=== PATIENT | male | born 1940 | race Hispanic/Latino ===

== ENCOUNTER 2017-04-15 12:19 | Inpatient (IN) | payer MEDICARE ==
[2017-04-15 12:26] VITALS: BMI 21.7
[2017-04-15] MEDS ORDERED: Sodium Chloride 0.9% 1,000 ML IV STA ×2 (12:39→20:06)
--- NOTE | 2017-04-15 13:03 | ED PDOC ---
Arrival/HPI - General Time Seen by Provider: 04/15/17 12:27 Historian: Patient, EMS EM Caveat: Altered Mental Status - History of Present Illness Narrative History of Present Illness (Text): 04/15/17 12:20 Yobani Rodriguez is a 77 year old male, whose past medical history includes throat cancer in remission, BPH status post TURP, unsteady gait, and vertigo, who was brought in by EMS because he was found down on the ground. EMS reports the patients caregiver arrived at his house, but the patient did not answer. Eventually the caregiver got inside and found the patient on the floor. The patient is unable to give a history on why he was on the floor. He notes having chills, but denies focal weakness, headache, nausea, vomiting, diarrhea, cough, visual changes, tongue biting, bowel/bladder incontinence, head injury or other complaints. Time/Duration: Prior to Arrival Symptom Onset: Sudden Symptom Course: Unchanged Modifying Factors (Text): None Context: Home Associated Symptoms (Text): fever and chills Past Medical History - Provider Review Nursing Documentation Reviewed: Yes - Infectious Disease Hx of Infectious Diseases: None - Tetanus Immunization Tetanus Immunization: Unknown - Cardiac Hx Cardiac Disorders: No Hx Congestive Heart Failure: No Hx Hypertension: Yes - Pulmonary Hx Chronic Obstructive Pulmonary Disease (COPD): No Hx Pneumonia: No - Neurological HX Cerebrovascular Accident: No - HEENT Hx HEENT Disorder: Yes (eyeglasses) - Renal Hx Renal Failure: No - Endocrine/Metabolic Hx Diabetes Mellitus Type 1: No Hx Diabetes Mellitus Type 2: No Hx Hypothyroidism: No - Hematological/Oncological Hx 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) - Integumentary Hx Dermatological Disorder: Yes Other/Comment: generalized thin dry this skin - Musculoskeletal/Rheumatological Hx Arthritis: No Hx Rheumatoid Arthritis: No - Gastrointestinal Hx Gastroesophageal Reflux: No - Genitourinary/Gynecological Hx Genitourinary Disorders: (cysto turp 3wf 07/30/16) Hx Reproductive Disorders: Yes - Psychiatric Hx Psychophysiologic Disorder: No Hx Depression: No Hx Emotional Abuse: No Hx Physical Abuse: No Hx Substance Use: No - Surgical History Hx Appendectomy: Yes Other/Comment: hernia - Anesthesia Hx Anesthesia Reactions: No Hx Malignant Hyperthermia: No - Suicidal Assessment Feels Threatened In Home Enviroment: No Family/Social History - Physician Review Nursing Documentation Reviewed: Yes Family/Social History: Unknown Family HX Smoking Status: Never Smoked Hx Alcohol Use: No Hx Substance Use: No Hx Substance Use Treatment: No Allergies/Home Meds Allergies/Adverse Reactions: Allergies Penicillins Allergy (Verified 04/15/17 13:12) RASH Home Medications: Home Meds Medication Instructions Recorded Confirmed Atorvastatin Calcium [Lipitor] 40 mg PO DAILY 11/14/14 07/30/16 Finasteride 5 mg PO DAILY 11/14/14 07/30/16 Tamsulosin [Flomax] 0.4 mg PO DAILY 11/14/14 07/30/16 Lubiprostone [Amitiza] 1 mcg PO DAILY 12/05/15 07/30/16 Meclizine [Meclizine*] 25 mg PO Q6 PRN 03/06/16 07/30/16 Metoprolol Succinate [Toprol XL] 25 mg PO DAILY 03/06/16 07/30/16 Review of Systems - Review of Systems Systems not reviewed;Unavailable: Altered Mental Status Constitutional: Fevers, Other (chills) Eyes: Normal. absent: Vision Changes ENT: Normal Respiratory: absent: SOB, Cough Cardiovascular: Syncope. absent: Chest Pain Gastrointestinal: absent: Abdominal Pain, Nausea, Vomiting Genitourinary Male: Normal Musculoskeletal: absent: Neck Pain Skin: Normal Neurological: absent: Headache, Focal Weakness Endocrine: Normal Hemo/Lymphatic: Normal Psychiatric: Normal Physical Exam Vital Signs Reviewed: Yes Vital Signs Temp Pulse Resp BP Pulse Ox 04/15/17 13:00 100.1 F H 123 H 20 108/44 L 97 Temperature: Febrile Blood Pressure: Hypotensive Pulse: Tachycardic Respiratory Rate: Normal Appearance: Positive for: Ill-Appearing Pain Distress: None Mental Status: Positive for: Alert and Oriented X 3 - Systems Exam Head: Present: Atraumatic, Normocephalic Pupils: Present: PERRL Conjunctiva: Present: Normal Mouth: Present: Dry Pharnyx: Present: Normal. No: ERYTHEMA, EXUDATE Neck: Present: Normal Range of Motion Respiratory/Chest: Present: Decreased Breath Sounds Cardiovascular: Present: Irregular Rhythm, Tachycardic. No: Murmurs Abdomen: Present: Normal Bowel Sounds. No: Tenderness, Distention, Peritoneal Signs Upper Extremity: Present: Other (multiple fingers with swan neck deformities ) Lower Extremity: Present: Normal Inspection. No: Edema Neurological: Present: GCS=15, CN II-XII Intact, Speech Normal Skin: Present: Warm, Dry, Normal Color. No: Rashes Psychiatric: Present: Oriented x 3 Medical Decision Making ED Course and Treatment: 04/15/17 12:20 Impression: 77 year old male with syncopal episode. Differential Diagnosis included but are not limited to: syncope vs. sepsis vs. rhabdo vs. dehydration vs. ACS vs. intercranial hemorrhage Plan: -- EKG -- CT Head without contrast -- Chest X-ray -- Labs -- Urinalysis -- Sodium Chloride -- Reassess and disposition Progress Notes: EKG: Ordered, reviewed, and independently interpreted the EKG. Rate : 147 BPM Rhythm : Afib. Left [place] Deviation. Interpretation : Non-specific T-wave changes. Comparison : No new changes compared to 07/25/2016 04/15/17 14:[address] scan without contrast: Creator : Omi Orourke MD COMPARISON: 08/01/[address] FINDINGS: HEMORRHAGE: No intracranial hemorrhage. BRAIN: No mass effect or cortical edema. Age-related neuro-degenerative changes including diffuse cerebral atrophy chronic microangiopathy are reiterated ileal in the interval. No suspicious parenchymal findings are identified throughout. VENTRICLES: Unremarkable. No hydrocephalus. CALVARIUM: Unremarkable. PARANASAL SINUSES: Unremarkable as visualized. No significant inflammatory changes. MASTOID AIR CELLS: Unremarkable as visualized. No inflammatory changes. OTHER FINDINGS: None. 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 Follow-up MRI or CT are available clinically warranted. 04/15/17 14:38 Chest X-ray : Creator : Qasim Cifuentes MD HISTORY: Sepsis Patient COMPARISON: 07/26/2016 FINDINGS: LUNGS: Decreased volume in the left lung relative to the right. This is unchanged. No evidence of pneumonia PLEURA: No significant pleural effusion identified, no pneumothorax apparent. CARDIOVASCULAR: Normal. OSSEOUS STRUCTURES: No significant abnormalities. VISUALIZED UPPER ABDOMEN: Normal. OTHER FINDINGS: None. IMPRESSION: No evidence of pneumonia 04/15/17 15:31 Patient with noted history. He is awake and alert here but unsure of what happened. CT brain and CXR with no acute findings. EKG with afib; He is hemodynamically stable. Labs show dehydration and mild rhabdo. 04/15/17 18:10 Antibiotic added for possible UTI. - Lab Interpretations Lab Results: 04/15/17 13:00 04/15/17 13:00 Lab Results 04/15/17 15:00: Urine Color Yellow, Urine Appearance Sl cloudy, Urine pH 5.5, Ur Specific [place] >= 1.030, Urine Protein 30 H, Urine Glucose (UA) Negative, Urine Ketones 40 H, Urine Blood Moderate H, Urine Nitrate Negative, Urine Bilirubin Small H, Urine Urobilinogen 1.0 H, Ur Leukocyte Esterase Negative, Urine RBC 10 - 15, Urine WBC 0 - 2 04/15/17 13:00: C-React Prot High Sens > 15.00 H 04/15/17 13:00: Procalcitonin < 0.05 L 04/15/17 13:00: Sodium 141, Chloride 105, Potassium 3.9, Carbon Dioxide 22, Anion Gap 18, BUN 25 H, Creatinine 1.0, Est GFR ( Amer) > 60, Est GFR ( Non-Af Amer) > 60, Random Glucose 104, Calcium 9.5, Phosphorus 4.0, Magnesium 1.8, Total Bilirubin 1.8 H, AST 38, ALT 23, Alkaline Phosphatase 28 L, Lactate Dehydrogenase 485, Total Creatine Kinase 717 H, CK-MB (CK-2) 8.9 H, CK-MB (CK-2 ) % 1.2 L, Troponin I < 0.01, Total Protein 6.7, Albumin 3.7, Globulin 3.0, Albumin/Globulin Ratio 1.2, Lipase 34 04/15/17 13:00: pO2 42, VBG pH 7.37, VBG pCO2 39.0 L, VBG HCO3 22.5, VBG Total CO2 23.7, VBG O2 Sat (Calc) 81.6 H, VBG Base Excess -2.5 L, VBG Potassium 4.1, Sodium 139.0, Chloride 105.0, Glucose 110, Lactate 1.8, FiO2 21.0, Venous Blood Potassium 4.1 04/15/17 13:00: PT 12.6 H, INR 1.17 H, APTT 28.3 04/15/17 13:00: WBC 8.2, RBC 4.84, Hgb 14.3, Hct 43.0, MCV 88.8, MCH 29.5, MCHC 33.3, RDW 13.6, Plt Count 235, MPV 9.6, Gran % 84.9 H, Lymph % (Auto) 4.2 L, [place] % (Auto) 10.6 H, Eos % (Auto) 0.1 L, Baso % (Auto) 0.2, Gran # 6.93 H, Lymph # 0.3 L, [place] # 0.9 H, Eos # 0.0, Baso # 0.02, ESR 10 I have reviewed the lab results: Yes - RAD Interpretation Radiology Orders: 04/15/17 12:35 CHEST PORTABLE [RAD] Stat 04/15/17 12:38 Brain [HEAD W/O CONTRAST] [CT] Stat Manager Wireless: Radiologist - EKG Interpretation Interpreted by ED Physician: Yes Type: 12 lead EKG - Medication Orders Current Medication Orders: Discontinued Medications Acetaminophen (Tylenol 325mg Tab) 650 mg PO STAT STA Stop: 04/15/17 13:54 Last Admin: 04/15/17 14:52 Dose: 650 mg Re-Assess: MAR Pain/Vitals Document 04/15/17 15:52 [facility] (Rec: 04/15/17 16:13 [facility] [id number]) Pain Reassessment Is This A Pain ReAssessment? Yes Sleep Is patient sleeping during reassessment? No Presence of Pain Presence of Pain No Sodium Chloride (Sodium Chloride 0.9%) 1,000 mls @ 999 mls/hr IV .Q1H1M STA Stop: 04/15/17 13:39 Last Admin: 04/15/17 13:23 Dose: 999 mls/hr - PA / CLASSIFICATION CLERK / Resident Statement / has reviewed & agrees with the documentation as recorded. / has examined the patient and agrees with the treatment plan. - Scribe Statement The provider has reviewed the documentation as recorded by the Scribe 04/15/2017 Vannessa Gilman Provider Scribe Attestation: All medical record entries made by the Scribe were at my direction and personally dictated by me. I have reviewed the chart and agree that the record accurately reflects my personal performance of the history, physical exam, medical decision making, and the department course for this patient. I have also personally directed, reviewed, and agree with the discharge instructions and disposition. Disposition/Present on Arrival - Present on Arrival Any Indicators Present on Arrival: Yes History of DVT/PE: No History of Uncontrolled Diabetes: No Urinary Catheter: Yes (3 way hurtado with irrigant) History Surgical Site Infection Following: None - Disposition Have Diagnosis and Disposition been Completed?: Yes Diagnosis: Atrial fibrillation, Altered mental status, Dehydration Disposition: HOSPITALIZED Disposition Time: 14:40 Patient Plan: Admission, Telemetry Patient Problems: Current Active Problems Problem Status Onset Altered mental status Acute Atrial fibrillation Acute Condition: FAIR Referrals: Ronak Garza DO [Primary Care Provider] - Follow up with primary
[2017-04-15 13:35] LABS: VENOUS BLOOD GAS BASE EXCESS -2.5 mmol/L (0.0-2.0); VENOUS BLOOD GAS PO2 42 mm/Hg (30-55); VENOUS BLOOD PH 7.37 (7.32-7.43)
[2017-04-15 13:36] LABS: BASO # 0.02 K/mm3 (0.0-2.0); BASO % 0.2 % (0.0-3.0); EOS % 0.1 % (1.5-5.0); GRAN # 6.93 (1.4-6.5); GRAN % 84.9 % (50.0-68.0); HEMOGLOBIN 14.3 gm/dL (14.0-18.0); LYMPH # 0.3 (1.2-3.4); LYMPH % 4.2 % (22.0-35.0); MEAN CELL VOLUME 88.8 fL (80.0-105.0); MEAN CORPUSCULAR HEMOGLOBIN 29.5 pg (25.0-35.0); MEAN CORPUSCULAR HGB CONC 33.3 g/dl (31.0-37.0); MEAN PLATELET VOLUME 9.6 fl (7.0-11.0); MONO # 0.9 (0.1-0.6); MONO % 10.6 % (1.0-6.0); PLATELET COUNT 235 10^3/uL (120.0-450.0); RBC 4.84 10^6/uL (3.5-6.1); RED CELL DISTRIBUTION WIDTH 13.6 % (11.5-14.5); WHITE BLOOD COUNT 8.2 10^3/ul (4.5-11.0)
[2017-04-15 13:47] LABS: INR 1.17 (0.93-1.08); PARTIAL THROMBOPLASTIN TIME 28.3 Seconds (23.7-30.8); PROTHROMBIN TIME 12.6 Seconds (9.9-11.8)
[2017-04-15 13:50] LABS: ALB/GLOB RATIO 1.2 (1.1-1.8); ALBUMIN 3.7 g/dL (3.0-4.8); ALT/SGPT 23 U/L (7-56); AST/SGOT 38 U/L (15-59); BLOOD UREA NITROGEN 25 mg/dL (7-21); CALCIUM 9.5 mg/dL (8.4-10.5); GFR AFRICAN-AMERICAN > 60; GFR NON-AFRICAN AMERICAN > 60; LIPASE 34 U/L (23-300); MAGNESIUM 1.8 mg/dL (1.7-2.2)
[2017-04-15 14:03] LABS: TROPONIN I < 0.01 ng/mL
[2017-04-15 14:06] LABS: CK MB% 1.2 % (2.5-3.0); CK-MB 8.9 ng/mL (0.0-3.6)
--- NOTE | 2017-04-15 14:10 | CT ---
PROCEDURE: CT HEAD WITHOUT CONTRAST. HISTORY: found on ground, alt ms COMPARISON: 08/01/[address] TECHNIQUE: Axial computed tomography images were obtained through the head/brain without intravenous contrast. Radiation dose: Total exam DLP = 774 mGy-cm. This CT exam was performed using one or more of the following dose reduction techniques: Automated exposure control, adjustment of the mA and/or kV according to patient size, and/or use of iterative reconstruction technique. FINDINGS: HEMORRHAGE: No intracranial hemorrhage. BRAIN: No mass effect or cortical edema. Age-related neuro-degenerative changes including diffuse cerebral atrophy chronic microangiopathy are reiterated ileal in the interval. No suspicious parenchymal findings are identified throughout. VENTRICLES: Unremarkable. No hydrocephalus. CALVARIUM: Unremarkable. PARANASAL SINUSES: Unremarkable as visualized. No significant inflammatory changes. MASTOID AIR CELLS: Unremarkable as visualized. No inflammatory changes. OTHER FINDINGS: None. 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 Follow-up MRI or CT are available clinically warranted.
--- NOTE | 2017-04-15 14:34 | RAD ---
HISTORY: Sepsis Patient COMPARISON: 07/26/2016 FINDINGS: LUNGS: Decreased volume in the left lung relative to the right. This is unchanged. No evidence of pneumonia PLEURA: No significant pleural effusion identified, no pneumothorax apparent. CARDIOVASCULAR: Normal. OSSEOUS STRUCTURES: No significant abnormalities. VISUALIZED UPPER ABDOMEN: Normal. OTHER FINDINGS: None. IMPRESSION: No evidence of pneumonia
[2017-04-15 15:34] LABS: PH,URINE 5.5 (4.7-8.0); URINE BILIRUBIN SMALL (NEGATIVE); URINE BLOOD MODERATE (NEGATIVE); URINE GLUCOSE (UA) NEGATIVE (NEGATIVE); URINE LEUKOCYTE ESTERASE NEGATIVE Leu/uL (NEGATIVE); URINE NITRATE NEGATIVE (NEGATIVE); URINE PROTEIN 30 mg/dL (<30 mg/dL)
[2017-04-15 15:36] LABS: URINE APPEARANCE SL CLOUDY (CLEAR); URINE COLOR YELLOW (YELLOW)
[2017-04-15 15:47] LABS: URINE WBC 0 - 2 /hpf (0-6)
[2017-04-15] MEDS ORDERED: cefTRIAXone 1 gm 1 GM/100 ML BAG IV STA (18:09)
--- NOTE | 2017-04-15 19:02 | CARD ---
APPROVED REPORT EKG Measurement Heart [id number] <Conclusion> A Fib with RVR Left anterior fascicular block Nonspecific ST and T wave abnormality Abnormal ECG
[2017-04-15 22:57] LABS: CK MB% 1.2 % (2.5-3.0); CK-MB 6.6 ng/mL (0.0-3.6); TROPONIN I < 0.01 ng/mL
[2017-04-15] MEDS ORDERED: Pneumococcal 23-Valent Vaccine IM ONE (23:32)
[2017-04-16] MEDS: Meropenem 1g/NS 100mL IVPB 1 GM/100 ML PIGGYBACK IVPB SCH ×3 (06:12→21:05)
[2017-04-16 07:11] LABS: MEAN CELL VOLUME 89.9 fL (80.0-105.0); MEAN CORPUSCULAR HEMOGLOBIN 29.1 pg (25.0-35.0); MEAN CORPUSCULAR HGB CONC 32.3 g/dl (31.0-37.0); MEAN PLATELET VOLUME 9.7 fl (7.0-11.0); RBC 4.47 10^6/uL (3.5-6.1); RED CELL DISTRIBUTION WIDTH 13.9 % (11.5-14.5); WHITE BLOOD COUNT 4.5 10^3/ul (4.5-11.0)
[2017-04-16 07:26] LABS: ALB/GLOB RATIO 1.2 (1.1-1.8); ALBUMIN 3.1 g/dL (3.0-4.8); ALT/SGPT 25 U/L (7-56); AST/SGOT 31 U/L (15-59); BLOOD UREA NITROGEN 20 mg/dL (7-21); CALCIUM 8.6 mg/dL (8.4-10.5); GFR AFRICAN-AMERICAN > 60; GFR NON-AFRICAN AMERICAN > 60
[2017-04-16] MEDS: Sodium Chloride 0.45% 1,000 ML IV SCH (08:36)
--- NOTE | 2017-04-16 09:43 | HP ---
HISTORY OF PRESENT ILLNESS: I know Yobani very well from house calls and recent admissions. I got a call from the emergency room that he was in the ER. He was found on the floor. I discussed this with family, with his niece who said he was not around for 2 days; they have to break the door down to get to him. It could be possible that he has been on the floor for 48 hours. He comes in being a 77-year-old man who was found on the ground by EMS. He was unable to answer questions. He was unable to give any history, do not know why he was on the floor, he was a kind of adamant. PAST MEDICAL HISTORY: He has a past medical history of throat cancer in remission, BPH, status post TURP, unsteady gait, vertigo, hypertension, squamous cell of the neck, status post radiation, generalized dry skin. He had a cysto TURP. He had a hernia and appendectomy. FAMILY HISTORY: Hypertension with family. SOCIAL HISTORY: Never smoked. No alcohol. No drugs. ALLERGIES: HE HAS ALLERGIES TO PENICILLIN, HE GETS A RASH. MEDICATIONS: He is on Lipitor for high cholesterol, finasteride and Flomax for BPH, Amitiza for constipation, meclizine for dizziness and metoprolol for hypertension. REVIEW OF SYSTEMS: He is altered mentally. He answered a few questions for me, he has some fevers. No acute vision changes or hearing changes. Denies shortness of breath. No chest pain at this time but possibly a syncope episode. No nausea, vomiting, constipation, diarrhea. He is achy in his extremities. Skin for the most part is intact. No dizziness. No numbness. No tingling. PHYSICAL EXAMINATION: Vital signs: He has a 100.1 temp, 123 pulse, 20 respiratory rate, 108/44 blood pressure, 97% of O2 sat. General: He is in little bit of distress. He has altered mental status. He has fevers. HEENT: His head is atraumatic and normocephalic. Extraocular muscles are intact. Throat is dry. Neck: Supple. Lungs: Decreased breath sounds, but clear to auscultation. Heart: Irregular rhythm. Abdomen: Soft, nontender, positive bowel sounds. No guarding. No rebound. Extremities: No edema. He is thin and frail. Neurologic: GCS is 15. Cranial nerves II through XII grossly intact. Dry skin. He is alert. He was found on the ground. LABORATORY DATA: His urine shows 30 protein, 40 ketones, moderate blood, negative leukocytes. He has 141 sodium, potassium 3.9, BUN 25, creatinine 1. GFR is greater than 60. Sugar is 104, calcium is 9.5, phosphorus is 4, magnesium 1.8, total bilirubin is 1.8. AST is 38 and ALT is 23. Alkaline phosphatase is 28, lactate dehydrogenase is 45. Total creatine kinase is 5717. Troponin I is less than 0.01. His CRP is greater than 15. Total protein 6.7, albumin is 3.7, globulin is 3, procalcitonin is less than 0.05. He has 7.37 pH. INR is 1.17. White count is 8.2, hemoglobin 14.3, hematocrit 43, platelets of 235. He had a chest x-ray that showed no evidence of pneumonia. He had a head CT which showed stable mild age-related neurodegenerative change without intracranial findings. His EKG showed AFib with rapid ventricular response. He has numerous issues. He has had a bit of rhabdomyolysis, mild renal insufficiency, dehydration, change in mental status and atrial fibrillation, however, consult with cardiology and infectious disease. The temperature is possibly because of an infection. We put back on his medications. He was already given a dose of Rocephin, even though he is allergic to penicillin. We will continue with aggressive treatment and care. Check his labs tomorrow. Ronak Garza DO
--- NOTE | 2017-04-16 10:18 | US ---
HISTORY: fever/size of CBD COMPARISON: None. TECHNIQUE: Sonographic evaluation of the abdomen. FINDINGS: LIVER: Measures 11 x 9 x 9 cm. Normal echogenicity of the liver parenchyma. No mass. No intrahepatic bile duct dilatation. GALLBLADDER: Unremarkable. No gallstones. Bilateral renal cysts COMMON BILE DUCT: Measures 3 mm. No stones. No dilatation. PANCREAS: Unremarkable as visualized. No mass. No ductal dilatation. RIGHT KIDNEY: Measures 10 x 6 x 5cm. Normal echogenicity. No calculus, solid mass, or hydronephrosis. Exophytic cyst lower pole: 2.7 2.9 x 2.9 cm LEFT KIDNEY: Measures 11 x 5 x 6cm. Normal echogenicity. No calculus, solid mass, or hydronephrosis. Multiple at least 3 small cysts all less than 2 cm in size parapelvic and intra cortical SPLEEN: Normal in size and contour. No mass. AORTA: No aneurysmal dilatation. IVC: Unremarkable. OTHER FINDINGS: None. IMPRESSION: No gallbladder pathology appreciated. No dilated ducts Bilateral renal cysts
[2017-04-16] MEDS: Potassium Chloride 20 mEq ER Tab PO SCH (11:32)
[2017-04-16] MEDS: Metoprolol Succinate 25 mg XL Tab PO SCH (11:32)
--- NOTE | 2017-04-16 15:12 | PN ---
DATE: 04/16/2017 SUBJECTIVE: I saw Yobani this morning, resting in bed. He is more alert. He knew where he was. He does not remember much of the other days, but he tells me he is very hungry this morning. He is almost back to himself mentally. I think he is little bit weak. He might need some physical therapy, they were ordered. He is also asking for food, I will give him regular diet this morning. He is much better than yesterday. He was much out of it yesterday. PHYSICAL EXAMINATION VITAL SIGNS: 97.4 temp, 98 pulse, 117/75 blood pressure, 20 respiratory rate, and 92% O2 saturation on room air. HEENT: Head is atraumatic and normocephalic. Throat is full dry. NECK: Supple. HEART: Regular rate. LUNGS: Decreased breath sounds, but clear. ABDOMEN: Soft, nontender, and positive bowel sounds. EXTREMITIES: No clubbing or edema. MEDICATIONS: He is currently on Antivert, aspirin, Flomax, potassium replacement. His potassium is low. Lipitor, Merrem IV to make sure we are not missing an infection, Proscar, IV fluids at 60, and Toprol. LABORATORY DATA: He has 143 sodium; potassium 3.3, I gave him some potassium; BUN 20; creatinine 0.7 much better than when he came in. GFR is greater than 60. Sugar is 70, calcium is 8.6, total bilirubin is better 1.4. AST is 31 and ALT is 25 and alkaline phosphatase is 22 all improving. 441. His total creatine kinase dropped to 549 improving. His troponin again is less than 0.01, which is great. Total protein is 5.8. White count and hemoglobin are pending this morning, but they were very good yesterday. He has consult with Infectious Disease, to make sure we are not missing an infection, and Cardiology. Overall, I do think he is improving. We will check his labs. Blood cultures pending. He is going to have physical therapy, might need CCU versus subacute rehab and I will see what the recommendation on physical therapy is. He was here for being found on the floor, little bit unresponsive, rhabdo, dehydration, and change in mentation. He is definitely coming around and a low potassium, we will replace it. Check his labs tomorrow. Get him out of bed to chair, physical therapy. Ronak Garza DO [email or web address]
--- NOTE | 2017-04-16 16:45 | US ---
HISTORY: Leg pain and swelling. Evaluate for DVT PHYSICIAN(S): Rowdy Alaniz MD. TECHNIQUE: Duplex sonography and color-flow Doppler with graded compression were used to evaluate the deep venous systems of both lower extremities. FINDINGS: The visualized deep venous systems of both lower extremities are sonographically normal and compressible. Normal wave forms and augmentation are seen. There is no sonographic evidence for deep venous thrombosis in the visualized segments of both lower extremities. IMPRESSION: No sonographic evidence for deep venous thrombosis in the visualized segments of both lower extremities.
--- NOTE | 2017-04-16 19:51 | CON ---
DATE: 04/16/2017 INDICATIONS: Possible syncope, chronic atrial fibrillation. HISTORY OF PRESENT ILLNESS: This is a 77-year-old man who is known to me, who was brought to the hospital yesterday after being found on the floor for perhaps a couple of days. He is unable to give an account and he is confused. Information is from the hospital record. Apparently, a caregiver found him on the floor at home. The patient reported chills, but no chest pain or shortness of breath. Today, he is not sure what happened. There is no orthopnea, PND, palpitations, sputum production, hemoptysis, abdominal pain, nausea, vomiting, diarrhea, constipation, melena. PAST MEDICAL HISTORY: Notable for atrial fibrillation. He is not on anticoagulation because it was judged to be too risky. He has a history of hyperlipidemia, prior syncope, tremor, vertigo, ENT cancer, treated with radiation therapy, inguinal hernia repair, appendectomy, urinary tract infections, BPH. He is a former smoker. There is no history of rheumatic fever, myocardial infarction, congestive heart failure, stroke or TIA. No history of gout. MEDICATIONS AT THE TIME OF ADMISSION: Include Amitiza, aspirin, finasteride, Flomax, Lipitor, meclozine, metoprolol. ALLERGIES: THERE IS AN ALLERGY TO PENICILLIN NOTED. FAMILY HISTORY: Positive for heart disease. SOCIAL HISTORY: He lives at home. He has assistance with a health aide. He is a former smoker. He does not drink alcohol significantly. REVIEW OF SYSTEMS: A 10-point review of system is unavailable because of confusion. PHYSICAL EXAMINATION GENERAL: He is a well developed, elderly man, lying flat in bed on telemetry, in no acute distress. VITAL SIGNS: Notable for atrial fibrillation at 69-108 beats per minute. He is afebrile. Blood pressure 117/75, respirations 16-20, O2 saturations 93% to 97% on room air. HEENT: Reveals no neck vein distension, thyromegaly, or carotid bruits. Mucous membranes moist. Conjunctive pink. NECK: Supple. LUNGS: [place] are clear. HEART: Reveals an irregular rhythm. Normal first and second heart sounds. Soft systolic murmur along left sternal border. ABDOMEN: Soft, bowel sounds are present. No mass, organomegaly, tenderness, rebound, or guarding. No CVA tenderness elicited. No palpable abdominal aortic aneurysm. EXTREMITIES: Reveals no cyanosis, clubbing or edema. NEUROLOGIC: Awake, alert, confused. PSYCHIATRIC: Normal as to mood and affect. SKIN: Warm and dry. No rash or cellulitis. LABORATORY DATA: EKG demonstrated atrial fibrillation with rapid ventricular response, nonspecific ST wave changes. No change from a prior EKG except that the rate is a bit faster. A chest x-ray reveals no evidence of pneumonia. A CT scan of the head reveals stable, mild age-related neurodegenerative changes. No acute findings. CBC is unremarkable. PT, INR, PTT unremarkable. Blood gas is noted. Electrolytes, BUN, and creatinine, blood sugar, phosphorus, magnesium, LFTs unremarkable except for mildly elevated bilirubin and low alkaline phosphatase. Troponin is negative x2. CK is elevated at 717, repeat 549. C-reactive protein is elevated at 15. Lipase is normal. Procalcitonin is low at 0.05. Urinalysis is abnormal. ASSESSMENT: Yobani Rodriguez is a 77-year-old man who was found on the floor and is confused. There may be an element of rhabdomyolysis given the mildly elevated CK. There is no evidence of acute myocardial infarction. He is in chronic atrial fibrillation. He has not been anticoagulated because the risk is too high. PLAN: At this time, I will review his old records. He is on telemetry. He is getting IV fluids. Potassium is being replaced for a potassium of 3.3 this morning. He will get metoprolol. He has been cultured. He is on antibiotics. His home medications have been ordered including aspirin, Flomax, atorvastatin, and finasteride. He could be out of bed to chair. He will have a neurologic evaluation. He will have an ID evaluation. We will monitor I's and O's. I will check for postural changes. I will follow along with you. I will make additional recommendations based on his clinical course. Overall, a conservative course of cardiac care is anticipated. He still appears to be a high risk for chronic anticoagulation. Dar Velazquez MD [facility]
[2017-04-17] MEDS: Sodium Chloride 0.45% 1,000 ML IV SCH ×3 (00:57→20:17)
--- NOTE | 2017-04-17 03:18 | CON ---
The patient was seen in room 267, bed 2 this morning. CHIEF COMPLAINT: Low-grade fever and weakness. The patient was found on the floor x1 day. HISTORY OF PRESENT ILLNESS: This is a 77-year-old male with history of throat cancer, squamous cell; BPH; and chronic obstructive lung disease. The patient has had radiation therapy. He is an ex-smoker who was admitted, and the patient was found to have low-grade fevers. The patient had complained of being weak. He is able to give a history, although it is difficult as he is weak. He appears to be awake and oriented to time and place and person. No abdominal pain reported. No diarrhea or constipation. PAST MEDICAL HISTORY: Significant for thyroid cancer, squamous cell, with radiation therapy; BPH; and chronic obstructive lung disease. PAST SURGICAL HISTORY: Significant for TURP. ALLERGIES: THE PATIENT IS ALLERGIC TO PENICILLIN. MEDICATIONS AT HOME: Include, the patient is to be on Flomax, metoprolol, Amitiza, Lipitor, and aspirin. PHYSICAL EXAMINATION: VITAL SIGNS: The patient's temperature is 97, T-max is 100.1; blood pressure is 115/60; respiratory rate 20; heart rate of 98. HEENT: Unremarkable. NECK: Supple. LUNGS: Decreased breath sounds. HEART: Normal S1 and S2. ABDOMEN: Soft and nontender. LABORATORY DATA: Reveals a white count of 4.5, hemoglobin of 13, and platelets of 199. Coagulation is noted. BUN of 20 and creatinine of 0.7. CPK is improved. Procalcitonin is 0.05 (C-reactive protein is greater than 15). Blood cultures are no growth. The patient also had no evidence of DVT on the ultrasound and the ultrasound shows no gallbladder pathology appreciated. ASSESSMENT AND PLAN: A [id number] with throat cancer, squamous cell, with radiation; ex-smoker; benign prostatic hypertrophy; and chronic obstructive lung disease, with change in mental status, with low-grade fever of 100.1. CAT scan of the head is negative. Chest x-ray is negative. Currently on meropenem. If the patient's temperature remains afebrile and all cultures are negative, we will discontinue the meropenem in the next 24 hours. Derrell Beach MD
[2017-04-17] MEDS: Meropenem 1g/NS 100mL IVPB 1 GM/100 ML PIGGYBACK IVPB SCH (05:29)
[2017-04-17 06:19] LABS: ALB/GLOB RATIO 1.1 (1.1-1.8); ALBUMIN 2.9 g/dL (3.0-4.8); ALT/SGPT 20 U/L (7-56); AST/SGOT 26 U/L (15-59); BLOOD UREA NITROGEN 21 mg/dL (7-21); CALCIUM 8.5 mg/dL (8.4-10.5); GFR AFRICAN-AMERICAN > 60; GFR NON-AFRICAN AMERICAN > 60
[2017-04-17 06:43] LABS: HEMOGLOBIN 13.5 gm/dL (14.0-18.0); MEAN CELL VOLUME 89.8 fL (80.0-105.0); MEAN CORPUSCULAR HEMOGLOBIN 29.8 pg (25.0-35.0); MEAN CORPUSCULAR HGB CONC 33.2 g/dl (31.0-37.0); MEAN PLATELET VOLUME 9.8 fl (7.0-11.0); RBC 4.53 10^6/uL (3.5-6.1); WHITE BLOOD COUNT 4.8 10^3/ul (4.5-11.0)
--- NOTE | 2017-04-17 07:35 | CP.PCM.PN ---
Subjective - Date & Time of Evaluation Date of Evaluation: 04/17/17 Time of Evaluation: 07:00 - Subjective Subjective: Stable on 2R. Less confused. No CP or SOB. V/S noted. AF. PE: Lungs: few rhonchi Cor.: irreg., S1S2 Abd.: soft Ext.: no edema Neuro.: awake I/O= 1400/250 Labs noted. K+= 3.8 BC x2 NG at 24 hrs. LE stefano. Dopplers noted: No DVT Abd. U/S noted. Objective - Vital Signs/Intake and Output Vital Signs (last 24 hours): Temp Pulse Resp BP Pulse Ox 97.8 F 99 H 19 107/73 96 04/17/17 06:00 04/17/17 06:00 04/17/17 06:00 04/17/17 06:00 04/17/17 06:00 Intake and Output: 04/17/17 04/17/17 06:59 18:59 Intake Total 1160 Output Total 250 Balance 910 - Medications Medications: Current Medications Aspirin (Aspirin) 325 mg PO DAILY [facility] Last Admin: 04/16/17 11:32 Dose: 325 mg Atorvastatin Calcium (Lipitor) 40 mg PO DAILY [facility] Last Admin: 04/16/17 11:32 Dose: 40 mg Finasteride (Proscar) 5 mg PO DAILY [facility] Last Admin: 04/16/17 11:32 Dose: 5 mg Meropenem 1g/NS 100mL IVPB (Meropenem 1g/Ns 100ml Ivpb) 1 gm in 100 mls @ 100 mls/hr IVPB Q8 [facility] PRN Reason: Protocol Stop: 04/25/17 06:01 Last Admin: 04/17/17 05:29 Dose: 100 mls/hr Sodium Chloride (Sodium Chloride 0.45%) 1,000 mls @ 60 mls/hr IV .[id number] [facility] Last Admin: 04/17/17 03:00 Dose: 60 mls/hr Meclizine HCl (Antivert) 25 mg PO Q6 PRN PRN Reason: Dizziness Metoprolol Succinate (Toprol Xl) 25 mg PO DAILY [facility] Last Admin: 04/16/17 11:32 Dose: 25 mg Potassium Chloride (K-Dur 20 Meq Er Tab) 20 meq PO BRK [facility] Last Admin: 04/16/17 11:32 Dose: 20 meq Tamsulosin HCl (Flomax) 0.4 mg PO DAILY [facility] Last Admin: 04/16/17 11:32 Dose: 0.4 mg - Labs Labs: 04/17/17 05:50 04/17/17 05:50 PT 12.6 Seconds (9.9-11.8) H 04/15/17 13:00 INR 1.17 (0.93-1.08) H 04/15/17 13:00 APTT 28.3 Seconds (23.7-30.8) 04/15/17 13:00 Assessment and Plan - Assessment and Plan (Free Text) Assessment: Found on the floor at home with AMS Chronic AF, not on A/C, too risky HLD H/O ENT ca., s/p XRT BPH UTI's Vertigo S/P appendectomy, inguinal hernia repair Former Smoker Plan: IV > PO intake OOB to chair as majo Check cultures. As per ID As per Dr. Garza Conservative cardiac care.
[2017-04-17] MEDS: Potassium Chloride 20 mEq ER Tab PO SCH (08:06)
[2017-04-17] MEDS: Metoprolol Succinate 25 mg XL Tab PO SCH (10:47)
--- NOTE | 2017-04-17 11:39 | PN ---
DATE: SUBJECTIVE: He is resting comfortably in bed. He slept well last night. He is very alert and oriented. He understands what is going on. He is hungry. He is eating well. He is in good spirits. He is just weak in his physical therapy . PHYSICAL EXAMINATION VITAL SIGNS: 97.6 temperature, 99 pulse, 107/70 blood pressure, 19 respiratory rate, and 96% sat on nasal cannula. HEENT: Head is atraumatic and normocephalic. Throat is moist. NECK: Supple. HEART: Regular rate. LUNGS: Clear to auscultation. ABDOMEN: Soft and nontender. Positive bowel sounds. EXTREMITIES: Have no edema. LABORATORY DATA: He has 138 sodium, potassium 3.8, BUN is 21, creatinine 0.7 much better. GFR is greater than 60. Sugar is 84, calcium is 8.5, total bilirubin is 1.1. AST is 26, ALT is 20, alkaline phosphatase is 22, total protein is 5.5. White count is 4.8, hemoglobin 13.5, hematocrit 40.7, platelets are 204. Urine had moderate blood. MEDICATIONS: He is currently on Antivert, aspirin, Flomax, potassium, Lipitor, Merrem, Proscar, IV fluids and Toprol. ASSESSMENT AND PLAN: He is being seen by Cardiology and Infectious Disease. I believe they stopped the Merrem because his blood cultures are negative, I agree with that. He needs physical therapy. We are going to try and get him to TCU in the next day before he goes home. He is in better spirits than when he came in because he could not talk when he came in and physical therapy saw him. I recommended TCU . I think TCU will be better. I am hopeful we can do that tomorrow. This is a progress note for Yobani Rodriguez who was found on the floor after being down for 2 days with rhabdo, dehydration, change in mentation and low potassium. Ronak Garza DO [facility]
--- NOTE | 2017-04-17 13:34 | RAD ---
PROCEDURE: Pelvis and left hip HISTORY: pain COMPARISON: TECHNIQUE: Two views FINDINGS: Moderate degenerative changes are seen on the left with joint space narrowing and osteophyte formation. On the right side severe degenerative changes are seen with acetabular protrusion. This is consistent with an old fracture. 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 See comments
--- NOTE | 2017-04-17 13:37 | PN ---
DATE: 04/17/2017 SUBJECTIVE: The patient is in bed in no acute distress, nontoxic. He is doing better. He is awake and responsive. PHYSICAL EXAMINATION VITAL SIGNS: Temperature is 98, blood pressure is 110/60, respiratory rate of 18. HEENT: Unremarkable. NECK: Supple. LUNGS: Decreased breath sound. HEART: Normal S1, S2. ABDOMEN: Soft and nontender. LABORATORY DATA: Reveals a white count of 4.8, hemoglobin of 13, platelets of 204. Coagulase is noted. Chemistry reveals a BUN of 21, creatinine of 0.7, and procalcitonin 0.05. Urinalysis is noted. Microbiology reveals blood cultures are negative. Urine cultures are negative. ASSESSMENT AND PLAN: This is a 77-year-old with throat cancer, squamous cell, status post radiation, history of long ex-smoker, benign prostatic hypertrophy, chronic obstructive lung disease, change in mental status, low-grade fever, CAT scan of the head negative, chest x-ray is negative, cultures negative with negative procalcitonin, negative urinalysis, no evidence of infection. We will discontinue the meropenem. I will follow with you. Derrell Beach MD
[2017-04-17 17:46] LABS: URINE APPEARANCE CLEAR (CLEAR); URINE BILIRUBIN NEGATIVE (NEGATIVE); URINE BLOOD TRACE-LYSED (NEGATIVE); URINE COLOR YELLOW (YELLOW); URINE GLUCOSE (UA) NEGATIVE (NEGATIVE); URINE LEUKOCYTE ESTERASE NEGATIVE Leu/uL (NEGATIVE); URINE NITRATE NEGATIVE (NEGATIVE); URINE PROTEIN NEGATIVE mg/dL (<30 mg/dL)
[2017-04-17 17:59] LABS: URINE EPITHELIAL CELLS 0 - 2 /hpf (0-5); URINE RBC 0 - 2 /hpf (0-2)
[2017-04-17 18:00] LABS: URINE BACTERIA TRACE (NEG)
[2017-04-18 06:12] LABS: HEMOGLOBIN 13.9 gm/dL (14.0-18.0); MEAN CELL VOLUME 88.1 fL (80.0-105.0); MEAN CORPUSCULAR HEMOGLOBIN 29.5 pg (25.0-35.0); MEAN CORPUSCULAR HGB CONC 33.5 g/dl (31.0-37.0); MEAN PLATELET VOLUME 9.3 fl (7.0-11.0); RBC 4.71 10^6/uL (3.5-6.1); RED CELL DISTRIBUTION WIDTH 13.6 % (11.5-14.5); WHITE BLOOD COUNT 6.3 10^3/ul (4.5-11.0)
[2017-04-18 06:24] VITALS: O2SAT 98
[2017-04-18 06:52] LABS: BLOOD UREA NITROGEN 20 mg/dL (7-21); GFR AFRICAN-AMERICAN > 60; GFR NON-AFRICAN AMERICAN > 60
[2017-04-18 06:53] LABS: ALBUMIN 2.9 g/dL (3.0-4.8); ALT/SGPT 23 U/L (7-56); AST/SGOT 21 U/L (15-59); CALCIUM 8.8 mg/dL (8.4-10.5)
--- NOTE | 2017-04-18 07:42 | CP.PCM.PN ---
Subjective - Date & Time of Evaluation Date of Evaluation: 04/18/17 Time of Evaluation: 06:00 - Subjective Subjective: Stable on 2R. No CP or SOB. Alert with int. confusion. V/S noted. AF. PE: Lungs: few rhonchi Cor.: irreg., S1S2 Abd.: soft Ext.: no edema Neuro.: awake I/O= 1300/300 Labs noted. K+= 4.3 BC x2 NG at 48 hrs. LE stefano. Dopplers noted: No DVT Abd. U/S noted. Objective - Vital Signs/Intake and Output Vital Signs (last 24 hours): Temp Pulse Resp BP Pulse Ox 97.7 F 101 H 20 116/82 98 04/18/17 06:00 04/18/17 06:00 04/18/17 06:00 04/18/17 06:00 04/18/17 06:00 Intake and Output: 04/18/17 04/18/17 06:59 18:59 Intake Total 1320 Output Total 300 Balance 1020 - Medications Medications: Current Medications Aspirin (Aspirin) 325 mg PO DAILY [facility] Last Admin: 04/17/17 10:46 Dose: 325 mg Atorvastatin Calcium (Lipitor) 40 mg PO DAILY [facility] Last Admin: 04/17/17 10:47 Dose: 40 mg Finasteride (Proscar) 5 mg PO DAILY [facility] Last Admin: 04/17/17 10:47 Dose: 5 mg Sodium Chloride (Sodium Chloride 0.45%) 1,000 mls @ 60 mls/hr IV .[id number] [facility] Last Admin: 04/17/17 20:17 Dose: 60 mls/hr Meclizine HCl (Antivert) 25 mg PO Q6 PRN PRN Reason: Dizziness Metoprolol Succinate (Toprol Xl) 25 mg PO DAILY [facility] Last Admin: 04/17/17 10:47 Dose: 25 mg Potassium Chloride (K-Dur 20 Meq Er Tab) 20 meq PO BRK [facility] Last Admin: 04/17/17 08:06 Dose: 20 meq Tamsulosin HCl (Flomax) 0.4 mg PO DAILY [facility] Last Admin: 04/17/17 10:47 Dose: 0.4 mg - Labs Labs: 04/18/17 05:40 04/18/17 05:40 PT 12.6 Seconds (9.9-11.8) H 04/15/17 13:00 INR 1.17 (0.93-1.08) H 04/15/17 13:00 APTT 28.3 Seconds (23.7-30.8) 04/15/17 13:00 Assessment and Plan - Assessment and Plan (Free Text) Assessment: Found on the floor at home with AMS, rhabdo. Chronic AF, not on A/C, too risky HLD H/O ENT ca., s/p XRT BPH UTI's Vertigo S/P appendectomy, inguinal hernia repair Former Smoker Plan: OOB to chair as majo As per Dr. Garza and ID > AB D/C'd TCU Eval.'Geotechnical Intern Eval. Conservative cardiac care.
[2017-04-18] MEDS: Potassium Chloride 20 mEq ER Tab PO SCH (08:08)
[2017-04-18] MEDS: Sodium Chloride 0.45% 1,000 ML IV SCH ×2 (09:30→13:10)
[2017-04-18] MEDS: Metoprolol Succinate 25 mg XL Tab PO SCH (10:38)
--- NOTE | 2017-04-18 11:31 | CP.PCM.PN ---
Subjective - Date & Time of Evaluation Date of Evaluation: 04/18/17 Time of Evaluation: 10:05 - Subjective Subjective: Comfortable, afebrile, not in distress. Objective - Vital Signs/Intake and Output Vital Signs (last 24 hours): Temp Pulse Resp BP Pulse Ox 97.7 F 101 H 20 116/82 98 04/18/17 06:00 04/18/17 06:00 04/18/17 06:00 04/18/17 06:00 04/18/17 06:00 Intake and Output: 04/18/17 04/18/17 06:59 18:59 Intake Total 1320 Output Total 300 Balance 1020 - Medications Medications: Current Medications Aspirin (Aspirin) 325 mg PO DAILY [facility] Last Admin: 04/18/17 10:36 Dose: 325 mg Atorvastatin Calcium (Lipitor) 40 mg PO DAILY [facility] Last Admin: 04/18/17 10:37 Dose: 40 mg Finasteride (Proscar) 5 mg PO DAILY [facility] Last Admin: 04/18/17 10:37 Dose: 5 mg Sodium Chloride (Sodium Chloride 0.45%) 1,000 mls @ 60 mls/hr IV .[id number] [facility] Last Admin: 04/17/17 20:17 Dose: 60 mls/hr Meclizine HCl (Antivert) 25 mg PO Q6 PRN PRN Reason: Dizziness Metoprolol Succinate (Toprol Xl) 25 mg PO DAILY [facility] Last Admin: 04/18/17 10:38 Dose: 25 mg Potassium Chloride (K-Dur 20 Meq Er Tab) 20 meq PO BRK [facility] Last Admin: 04/18/17 08:08 Dose: 20 meq Tamsulosin HCl (Flomax) 0.4 mg PO DAILY [facility] Last Admin: 04/18/17 10:37 Dose: 0.4 mg - Labs Labs: 04/18/17 05:40 04/18/17 05:40 PT 12.6 Seconds (9.9-11.8) H 04/15/17 13:00 INR 1.17 (0.93-1.08) H 04/15/17 13:00 APTT 28.3 Seconds (23.7-30.8) 04/15/17 13:00 - Constitutional Appears: Non-toxic, No Acute Distress - Head Exam Head Exam: NORMAL INSPECTION - Neck Exam Neck Exam: absent: Meningismus - Respiratory Exam Respiratory Exam: Decreased Breath Sounds - Cardiovascular Exam Cardiovascular Exam: +S1, +S2 - GI/Abdominal Exam GI & Abdominal Exam: Soft. absent: Tenderness Assessment and Plan - Assessment and Plan (Free Text) Plan: Assessment S/P low-grade fever without evidence of infection or sepsis throat cancer (squamous cell), S/P radiation in a patient with a significant smoking history COPD benign prostatic hyperplasia history of fracture of the left hip Plan continue to monitor off antibiotics since he is at risk for hospital-acquired infections
[2017-04-18 12:19] VITALS: BP 113/74; PULSE 93; RESP 18; TEMP 97
--- NOTE | 2017-04-18 18:07 | DS ---
SUBJECTIVE: I am discharging him to the nutritional care unit. He needs physical therapy before he goes home, he will go on IV fluids, his Antivert, aspirin, Flomax, potassium, Lipitor, Proscar, and Toprol. He is comfortable in bed. More alert. More oriented. He is eating better. He has got a good appetite. He is just very weak and he needs some therapy before he goes home. PHYSICAL EXAMINATION: VITAL SIGNS: Temperature 97.7, pulse 101, blood pressure 115/82, respiratory rate 20, 98% sat on nasal cannula 2 liters. HEENT: Head is atraumatic and normocephalic. Throat is moist. NECK: Supple. HEART: Regular rate. LUNGS: Clear to auscultation. ABDOMEN: Soft. EXTREMITIES: No edema. LABORATORY DATA: He currently has 135 sodium, potassium 4.3, BUN 20, creatinine 0.8 improving, GFR is greater than 60, sugar is 87, calcium is 8.8, total bilirubin is 1. AST is 21, ALT is 23, alkaline phosphatase is 24, total protein 5.8. White count 6.3, hemoglobin 13.9, hematocrit 41.5, and platelets 196. ASSESSMENT AND PLAN: He has been seen by infectious disease and cardiology. He had a hip x-ray and pelvis which showed moderate degenerative changes in the left. He has some arthritis. He has been on the floor did not help him. We will get the physical therapy and nutritional care unit today. Continue the same medications. Ronak Garza DO [facility]
--- NOTE | 2017-04-21 19:19 | CON ---
DATE: 04/21/2017 HISTORY OF PRESENT ILLNESS: Mr. Rodriguez is a 77-year-old white male who brought to the [facility] after falling at home. He was complaining of right eye pain. On physical examination, his visual acuity was 20/30. Lens exam was normal. Pupillary exam was normal. Extraocular movement exam was normal. Fundus exam was normal. The patient had previously been placed on TobraDex ophthalmic solution 1 drop to both eyes 4 times a day. I instructed Mr. Rodriguez to continue the drops and to come see me or another academic coach after discharge. I spoke to *------* and told him what my plan was. Derrek Farfan MD
== END 2017-04-18 14:46 | DRG 558 ==
LOC: ED 12:19 → ERH 14:40 → 2RNO 20:57
PROVIDERS: ADMIT Family Medicine; ATTEND Family Medicine
DX: M62.82 Rhabdomyolysis (principal); I48.2 Chronic atrial fibrillation; J44.9 Chronic obstructive pulmonary disease, unspecified; E86.0 Dehydration; E78.5 Hyperlipidemia, unspecified; N40.0 Benign prostatic hyperplasia without lower urinary tract symptoms; M19.90 Unspecified osteoarthritis, unspecified site; I10 Essential (primary) hypertension; Z85.819 Personal history of malignant neoplasm of unspecified site of lip, oral cavity, and pharynx; Z85.850 Personal history of malignant neoplasm of thyroid; Z92.3 Personal history of irradiation; Z90.79 Acquired absence of other genital organ(s); Z90.49 Acquired absence of other specified parts of digestive tract; Z87.891 Personal history of nicotine dependence; Z82.49 Family history of ischemic heart disease and other diseases of the circulatory system; Z88.0 Allergy status to penicillin; Z87.81 Personal history of (healed) traumatic fracture; Z87.440 Personal history of urinary (tract) infections

== ENCOUNTER 2017-04-18 14:53 | Inpatient (IN) | payer OTHER, MEDICARE ==
[2017-04-18] MEDS: Sodium Chloride 0.45% 1,000 ML IV SCH (18:09)
[2017-04-18] MEDS ORDERED: Pneumococcal 23-Valent Vaccine IM ONE (18:54)
[2017-04-19 07:27] LABS: BASO # 0.02 K/mm3 (0.0-2.0); BASO % 0.4 % (0.0-3.0); EOS % 0.8 % (1.5-5.0); GRAN # 3.87 (1.4-6.5); GRAN % 73.7 % (50.0-68.0); HEMOGLOBIN 13.9 gm/dL (14.0-18.0); LYMPH # 0.7 (1.2-3.4); LYMPH % 13.1 % (22.0-35.0); MEAN CELL VOLUME 87.6 fL (80.0-105.0); MEAN CORPUSCULAR HEMOGLOBIN 29.2 pg (25.0-35.0); MEAN CORPUSCULAR HGB CONC 33.3 g/dl (31.0-37.0); MEAN PLATELET VOLUME 9.5 fl (7.0-11.0); MONO # 0.6 (0.1-0.6); PLATELET COUNT 226 10^3/uL (120.0-450.0); RBC 4.76 10^6/uL (3.5-6.1); RED CELL DISTRIBUTION WIDTH 13.5 % (11.5-14.5); WHITE BLOOD COUNT 5.3 10^3/ul (4.5-11.0)
[2017-04-19 07:42] LABS: ALB/GLOB RATIO 1.1 (1.1-1.8); ALT/SGPT 22 U/L (7-56); AST/SGOT 21 U/L (15-59); BLOOD UREA NITROGEN 14 mg/dL (7-21); GFR AFRICAN-AMERICAN > 60; GFR NON-AFRICAN AMERICAN > 60
[2017-04-19] MEDS: Potassium Chloride 20 mEq ER Tab PO SCH (08:25)
[2017-04-19] MEDS: Metoprolol Succinate 25 mg XL Tab PO SCH (08:26)
[2017-04-19] MEDS: Sodium Chloride 0.45% 1,000 ML IV SCH (09:47)
[2017-04-19] MEDS ORDERED: Naproxen 275 mg Tab PO PRN (09:54)
[2017-04-19] MEDS: Tobramycin 0.3% OPH OINT OU SCH ×3 (15:30→21:27)
--- NOTE | 2017-04-19 16:51 | HP ---
HISTORY OF PRESENT ILLNESS: He is now in the transitional care unit. He was on the hospital side and known very well from house calls and other admissions to the hospital. He is a 77-year-old white male who was found on the floor after 2 days, they have to break down the door to get to him. He was confused and would not answer questions at first and he was dehydrated; possible rhabdomyolysis, mild renal insufficiency, change in mental status and atrial fibrillation, possible infection, he had a temperature when he came in. PAST MEDICAL HISTORY: He also has a medical history of throat cancer, in remission; BPH, status post TURP; unsteady gait; vertigo; hypertension; squamous cell of the neck, status post radiation; generalized dry skin. SURGICAL HISTORY: He had a cysto and TURP. He had a hernia and appendectomy. FAMILY HISTORY: There is hypertension in the family. SOCIAL HISTORY: He never smoked. No alcohol. No drugs. ALLERGIES: HE HAS ALLERGIES TO PENICILLIN. HE GETS A RASH. MEDICATIONS: He is currently on Anaprox, Antivert, aspirin, Flomax, potassium, Lipitor, Proscar, IV fluids, Tobradex and Toprol. REVIEW OF SYSTEMS: Right now he is in bed, he is tired, he does not want to get out of the bed at this time. I told him I have to do physical therapy and that is why he is in a transitional care unit, but he understands who I am and right away. His mentation definitely improving, it is just weak. No fevers at this time. No acute vision changes or hearing changes, but his right eye is bothering him. He said it hurts him and it crusted and had pus in the morning, looks like conjunctivitis. No chest pain. No shortness of breath. No abdominal pain. No nausea, vomiting, constipation, diarrhea. Extremities are weak, little achy. Skin for the most part is intact, just dry. No dizziness. No numbness. No tingling. PHYSICAL EXAMINATION: Vital signs: He has a 97.5 temp, 94 pulse, 112/75 blood pressure, 18 respiratory rate, 94% of O2 sat on room air. General: He is weak. He is alert. He knows me now. HEENT: His head is atraumatic and normocephalic. Extraocular muscles are intact. The right eye is little bit red and inflamed with some pus. Throat is moist. NECK: Supple. HEART: Irregular rate. LUNGS: Decreased breath sounds bilaterally, but clear to auscultation. ABDOMEN: Soft, nontender, positive bowel sounds. No guarding. No rebound. No CVA tenderness. EXTREMITIES: No edema. He is thin, frail and tall. NEUROLOGIC: GCS is 15. Cranial nerves 2 through 12 grossly intact. Skin is dry. He is alert, oriented x3. LABORATORY DATA: His blood test done. He has 138 sodium, potassium 4.2, BUN 40, creatinine 0.7. GFR is greater than 60. Sugar is 91, calcium is 9, total bilirubin is 1.1. AST is 21 and ALT is 22. Alkaline phosphatase is 26, total protein is 5.8, albumin is 3, globulin is 2.8. White count is 5.3, hemoglobin 13.9, hematocrit 41.7, platelets of 226. PLAN: He has had multiple consults, cardiology and ophthalmology, hopefully the eyes will improve. He will get out of the bed to chair. He will get physical therapy he has dehydration, found on the floor, change in mentation, rhabdomyolysis, low potassium and now conjunctivitis started with right eye pain. We will follow closely. Ronak Garza DO [facility]
[2017-04-19] MEDS: Naproxen 550 mg Tab PO PRN (17:29)
[2017-04-20] MEDS: Sodium Chloride 0.45% 1,000 ML IV SCH ×2 (06:56→18:21)
[2017-04-20 07:08] LABS: MEAN CELL VOLUME 88.4 fL (80.0-105.0); MEAN CORPUSCULAR HEMOGLOBIN 29.7 pg (25.0-35.0); MEAN CORPUSCULAR HGB CONC 33.6 g/dl (31.0-37.0); MEAN PLATELET VOLUME 9.7 fl (7.0-11.0); RBC 4.38 10^6/uL (3.5-6.1); RED CELL DISTRIBUTION WIDTH 13.6 % (11.5-14.5); WHITE BLOOD COUNT 4.7 10^3/ul (4.5-11.0)
[2017-04-20 07:32] LABS: ALBUMIN 2.7 g/dL (3.0-4.8); ALT/SGPT 19 U/L (7-56); AST/SGOT 21 U/L (15-59); BLOOD UREA NITROGEN 17 mg/dL (7-21); CALCIUM 8.6 mg/dL (8.4-10.5); GFR AFRICAN-AMERICAN > 60; GFR NON-AFRICAN AMERICAN > 60
[2017-04-20] MEDS: Metoprolol Succinate 25 mg XL Tab PO SCH (08:05)
[2017-04-20] MEDS: Potassium Chloride 20 mEq ER Tab PO SCH (08:06)
[2017-04-20] MEDS: Tobramycin 0.3% OPH OINT OU SCH ×4 (10:13→21:40)
--- NOTE | 2017-04-20 12:23 | PN ---
DATE: SUBJECTIVE: I saw Yobani in the transitional care unit. He is eating his breakfast. He ate the whole thing. He is urinating and he has got to go to the bathroom, which is good. He did do well with therapy yesterday. He has got no chest pain, shortness of breath, or abdominal pain this morning. He slept fairly well. He has got better energy today. He is looking forward to physical therapy. We discussed being safe when he goes home and he is to work hard on physical therapy while he is here. PHYSICAL EXAMINATION: VITAL SIGNS: Temperature 97.6, pulse 80, blood pressure 109/70, respiratory rate 16, and O2 saturation 96% on room air. HEENT: His head is atraumatic and normocephalic. Throat is moist. NECK: Supple. HEART: Regular rate. LUNGS: Decreased breath sounds. Clear to auscultation. ABDOMEN: Soft and nontender. Positive bowel sounds. EXTREMITIES: With no edema. LABORATORY DATA: He has sodium is 137, potassium is 4, BUN is 70, creatinine is 0.7, GFR is greater than 60, sugar is 75, calcium is 8.6, total bilirubin is 0.9, AST is 21, ALT is 19, and alkaline phosphatase is 24, and total protein is 5.3. White count is 4.7, hemoglobin is 13, hematocrit is 38.7, and platelets are 227. MEDICATIONS: He is currently on Anaprox as needed, Antivert, aspirin, Flomax, potassium, Lipitor, Proscar, IV fluids, Tobrex, and Toprol. ASSESSMENT AND PLAN: He is doing very well. He has consults with eye doctor for the eye pain, which is better than this morning and Cardiology, I believe. TobraDex eyedrops is helping him for the conjunctivitis of the right eye. He also has rhabdomyolysis, dehydration, change in mentation, he was found on the floor, possible syncope, low potassium has improved, and also his constipation is doing better. 5 more days of physical therapy will help him and is able to go home safely, continue with aggressive treatment and care, and check his labs tomorrow. Ronak Garza DO [facility] # [id number] [facility]
[2017-04-21 07:54] LABS: HEMOGLOBIN 12.3 gm/dL (14.0-18.0); MEAN CELL VOLUME 88.1 fL (80.0-105.0); MEAN CORPUSCULAR HEMOGLOBIN 29.2 pg (25.0-35.0); MEAN CORPUSCULAR HGB CONC 33.2 g/dl (31.0-37.0); RBC 4.21 10^6/uL (3.5-6.1); RED CELL DISTRIBUTION WIDTH 13.6 % (11.5-14.5); WHITE BLOOD COUNT 6.6 10^3/ul (4.5-11.0)
[2017-04-21 08:02] LABS: ALBUMIN 2.6 g/dL (3.0-4.8); ALT/SGPT 26 U/L (7-56); AST/SGOT 19 U/L (15-59); BLOOD UREA NITROGEN 20 mg/dL (7-21); CALCIUM 8.6 mg/dL (8.4-10.5); GFR AFRICAN-AMERICAN > 60; GFR NON-AFRICAN AMERICAN > 60
[2017-04-21] MEDS: Potassium Chloride 20 mEq ER Tab PO SCH (08:24)
[2017-04-21] MEDS: Metoprolol Succinate 25 mg XL Tab PO SCH (08:25)
[2017-04-21] MEDS: Sodium Chloride 0.45% 1,000 ML IV SCH (08:51)
[2017-04-21] MEDS: Tobramycin 0.3% OPH OINT OU SCH ×4 (09:52→21:57)
[2017-04-21] MEDS: Naproxen 550 mg Tab PO PRN (09:53)
--- NOTE | 2017-04-21 14:30 | PN ---
DATE: 04/21/2017 SUBJECTIVE: I saw Yobani resting comfortably in bed in the Transitional Care Unit. He slept well. He tells me he is trying physical therapy and he is eating very, very well. He did have a little bit of back pain, but it has gone now with little bit of Tylenol and Naprosyn. He is on Naprosyn, meclizine, aspirin, Flomax, potassium, Lipitor, Proscar, IV fluids, TobraDex for the eyes, and Toprol. He was also seen by the eye doctor today, because he had eye pain. He says nothing at this moment with his eyes, he is doing well. I think the eye drops have helped him greatly. PHYSICAL EXAMINATION VITAL SIGNS: He is at 97.5 temperature, 72 pulse, blood pressure is low at 87/53, 20 respiratory rate, 90% O2 saturation on room air. I will continue with the IV fluids. HEENT: Head is atraumatic, normocephalic. Throat is moist. NECK: Supple. HEART: Regular rate. LUNGS: Clear to auscultation. ABDOMEN: Soft, nontender. Positive bowel sounds. EXTREMITIES: Have no edema. LABORATORY DATA: He has a 6.6 white count, 12.3 hemoglobin, 37.1 hematocrit with 212 platelets. He has 135 sodium, potassium 4.1, BUN 20, creatinine 0.8, GFR is greater than 60, sugar is 80, calcium is 8.6, total bilirubin is 0.7, AST is 19, ALT is 26, alk phos 25, total protein 5.1, albumin is 2.6. ASSESSMENT AND PLAN: All that is different from the other day is that his blood pressure is a little bit lower, down to 87/53. It was as high as 109/73 the other day. We will continue with the IV fluids. Hopefully, he will do well with therapy and eat well. I do think, he is doing fairly well overall considering when he came in. He is alert and oriented x3 and asking good questions. We will check the labs tomorrow, watch his blood pressure. Sarah Garza DO [facility] # [id number]
[2017-04-22] MEDS: Metoprolol Succinate 25 mg XL Tab PO SCH (08:06)
[2017-04-22] MEDS: Potassium Chloride 20 mEq ER Tab PO SCH (08:06)
[2017-04-22] MEDS: Tobramycin 0.3% OPH OINT OU SCH ×3 (09:17→18:01)
--- NOTE | 2017-04-22 11:00 | PN ---
DATE: 04/22/2017 SUBJECTIVE: I saw Yobani resting comfortably in bed. He slept well. He is trying physical therapy. He is eating very well. He has some aches and pains in his joints from [id number]. He was on the floor for two days about a week ago, he is a little bit sore yet, but he is improving. He is on Anaprox, Antivert, aspirin, Flomax, potassium, Lipitor, Proscar, IV fluids, TobraDex, and Toprol. PHYSICAL EXAMINATION: GENERAL: He is thin and tall and frail. VITAL SIGNS: 98.3 temperature, 94 pulse, 108/68 blood pressure, 20 respiratory rate, and 90% O2 saturation on room air. HEENT: Head is atraumatic and normocephalic. Throat is moist. NECK: Supple. HEART: Regular rate. LUNGS: Decreased breath sounds. Clear to auscultation. ABDOMEN: Soft and nontender. Positive bowel sounds. EXTREMITIES: Have no edema. LABORATORY DATA: He has got a 6.6 white count, 12.3 hemoglobin, 37.1 hematocrit, and 212 platelets. He has 135 sodium, potassium 4.1, BUN 20, creatinine 0.8, GFR is greater than 160, sugar is 80, calcium is 8.6, total bilirubin is 0.7, AST is 19, ALT is 26, and alkaline phos 25. ASSESSMENT AND PLAN: I encouraged him to do well in physical therapy as well as he can, get stronger in a few more days. Hopefully, he will be able to be safe and go home and he was here for a few reasons. He had a fall at home. He was on the ground for 2 days. He had rhabdomyolysis, dehydration, low potassium, low blood pressure, and now he is starting to improve. Ronak Garza DO
[2017-04-22 11:40] VITALS: BMI 21.9
[2017-04-22] MEDS: Sodium Chloride 0.45% 1,000 ML IV SCH (13:32)
[2017-04-23 07:52] LABS: HEMOGLOBIN 11.7 gm/dL (14.0-18.0); MEAN CELL VOLUME 88.2 fL (80.0-105.0); MEAN CORPUSCULAR HEMOGLOBIN 29.5 pg (25.0-35.0); MEAN CORPUSCULAR HGB CONC 33.4 g/dl (31.0-37.0); RBC 3.97 10^6/uL (3.5-6.1); RED CELL DISTRIBUTION WIDTH 13.4 % (11.5-14.5)
[2017-04-23 08:02] LABS: ALBUMIN 2.8 g/dL (3.0-4.8); ALT/SGPT 22 U/L (7-56); AST/SGOT 17 U/L (15-59); BLOOD UREA NITROGEN 17 mg/dL (7-21); CALCIUM 8.7 mg/dL (8.4-10.5); GFR AFRICAN-AMERICAN > 60; GFR NON-AFRICAN AMERICAN > 60
[2017-04-23] MEDS: Metoprolol Succinate 25 mg XL Tab PO SCH (10:38)
[2017-04-23] MEDS: Potassium Chloride 20 mEq ER Tab PO SCH (10:38)
[2017-04-23] MEDS: Tobramycin 0.3% OPH OINT OU SCH ×4 (11:12→22:47)
--- NOTE | 2017-04-23 12:16 | PN ---
SUBJECTIVE: The patient is resting comfortably in bed. He slept fairly well. He is eating fairly well, but he is not doing that great in physical therapy I found out. MEDICATIONS: He is currently on Anaprox, Antivert, aspirin, Flomax, potassium, Lipitor, Proscar, IV fluids, TobraDex and Toprol. PHYSICAL EXAMINATION VITAL SIGNS: 90.6 temp, 91 pulse, 98/64 blood pressure, 18 respiratory rate, 94% of O2 sat on nasal canula. HEENT: His head is atraumatic and normocephalic. Throat moist. NECK: Supple. HEART: Regular rate. LUNGS: Decreased breath sounds, but clear. ABDOMEN: Soft. EXTREMITIES: No edema. LABORATORY DATA: He has a 8 white count, 11.7 hemoglobin, 35 hematocrit with a 215 platelets. 136 sodium, potassium 3.9, BUN 17, creatinine is 0.7, GFR is greater than 60, sugar is 86, calcium is 8.7, total bilirubin is 0.5, AST is 17, ALT is 12, alkaline phosphatase is 23. He might need to go to physical therapy at subacute rehab when we are done with TCU if he does not improve well enough. He has to improve and be less wobbly with his gait. He has got a contact guard with minimal assistance 120 feet x2, and they are worried about him tipping. They have few more days to go. Continue with the aggressive treatment and care. He might need subacute rehab, and he is here down on the floor for 2 days, dehydration, change in mentation, low back pain, low potassium. We will check on the labs. Ronak Garza DO
[2017-04-23] MEDS: Naproxen 550 mg Tab PO PRN (21:55)
[2017-04-23] MEDS: Sodium Chloride 0.45% 1,000 ML IV SCH (22:46)
[2017-04-24 07:13] LABS: HEMOGLOBIN 11.6 gm/dL (14.0-18.0); MEAN CELL VOLUME 88.5 fL (80.0-105.0); MEAN CORPUSCULAR HEMOGLOBIN 28.9 pg (25.0-35.0); MEAN CORPUSCULAR HGB CONC 32.7 g/dl (31.0-37.0); MEAN PLATELET VOLUME 9.1 fl (7.0-11.0); RBC 4.01 10^6/uL (3.5-6.1); RED CELL DISTRIBUTION WIDTH 13.5 % (11.5-14.5); WHITE BLOOD COUNT 5.9 10^3/ul (4.5-11.0)
[2017-04-24 07:38] LABS: ALBUMIN 2.8 g/dL (3.0-4.8); ALT/SGPT 22 U/L (7-56); AST/SGOT 23 U/L (15-59); BLOOD UREA NITROGEN 18 mg/dL (7-21); CALCIUM 8.8 mg/dL (8.4-10.5); GFR AFRICAN-AMERICAN > 60; GFR NON-AFRICAN AMERICAN > 60
[2017-04-24] MEDS: Potassium Chloride 20 mEq ER Tab PO SCH (08:34)
[2017-04-24] MEDS: Metoprolol Succinate 25 mg XL Tab PO SCH (08:35)
[2017-04-24] MEDS: Tobramycin 0.3% OPH OINT OU SCH ×5 (10:16→21:41)
--- NOTE | 2017-04-24 12:27 | PN ---
DATE: 04/24/2017 SUBJECTIVE: I saw Yobani in the Transitional Care Unit in room 321, slept fairly well. He is trying physical therapy and he is eating fairly well. He is on Anaprox, Antivert, aspirin, Flomax, potassium, Lipitor, Proscar, IV fluids, TobraDex and Toprol. He is alert. He is comfortable. No chest pain, no shortness of breath and no abdominal pain. PHYSICAL EXAMINATION GENERAL: He is tall and thin. VITAL SIGNS: He is 97.7 temperature, 94 pulse, 118/74 blood pressure, 20 respiratory rate, 90% of O2 sat room air. HEENT: His head is atraumatic and normocephalic. Throat is moist. NECK: Supple. HEART: Regular rate. LUNGS: Clear to auscultation. ABDOMEN: Soft. Scaphoid abdomen. EXTREMITIES: No edema. LABORATORY DATA: He has a 5.9 white count, 11.6 hemoglobin, 35.5 hematocrit, 232 platelets. 140 sodium, potassium is 4, BUN 18, creatinine 0.8, GFR is greater than 60, sugar is 86, calcium is 8.8, total bilirubin is 9, AST is 23, ALT is 22, alkaline phosphatase 23, total protein 5.5. ASSESSMENT AND PLAN: He is being seen by cardiology, eye doctor. He is doing well except for the fact he might need to go to subacute rehab when he gets done with TCU care. If he can walk and be safe enough to go home, I believe that they can go to subacute rehab to [facility]. We will continue checking his labs. Encouraged him to eat well, get out of bed to chair and do well with therapy. Ronak Garza DO MTDD
[2017-04-24] MEDS: Sodium Chloride 0.45% 1,000 ML IV SCH (12:56)
[2017-04-24] MEDS: Naproxen 550 mg Tab PO PRN (15:55)
[2017-04-25] MEDS: Sodium Chloride 0.45% 1,000 ML IV SCH ×3 (00:52→15:00)
[2017-04-25 06:14] LABS: HEMOGLOBIN 11.3 gm/dL (14.0-18.0); MEAN CORPUSCULAR HEMOGLOBIN 28.9 pg (25.0-35.0); MEAN CORPUSCULAR HGB CONC 32.8 g/dl (31.0-37.0); MEAN PLATELET VOLUME 8.9 fl (7.0-11.0); RBC 3.91 10^6/uL (3.5-6.1); RED CELL DISTRIBUTION WIDTH 13.5 % (11.5-14.5); WHITE BLOOD COUNT 5.8 10^3/ul (4.5-11.0)
[2017-04-25 06:24] LABS: ALBUMIN 2.9 g/dL (3.0-4.8); ALT/SGPT 28 U/L (7-56); AST/SGOT 26 U/L (15-59); BLOOD UREA NITROGEN 20 mg/dL (7-21); CALCIUM 8.7 mg/dL (8.4-10.5); GFR AFRICAN-AMERICAN > 60; GFR NON-AFRICAN AMERICAN > 60
[2017-04-25] MEDS: Metoprolol Succinate 25 mg XL Tab PO SCH (08:45)
[2017-04-25] MEDS: Potassium Chloride 20 mEq ER Tab PO SCH (08:45)
[2017-04-25] MEDS: Tobramycin 0.3% OPH OINT OU SCH ×5 (11:31→21:19)
[2017-04-25 16:18] VITALS: TEMP 98.1
[2017-04-26] MEDS: Sodium Chloride 0.45% 1,000 ML IV SCH ×2 (02:13→02:15)
[2017-04-26 06:34] VITALS: BP 130/69; PULSE 67; RESP 20; O2SAT 100
[2017-04-26 07:37] LABS: HEMOGLOBIN 11.7 gm/dL (14.0-18.0); MEAN CELL VOLUME 88.2 fL (80.0-105.0); MEAN CORPUSCULAR HEMOGLOBIN 29.3 pg (25.0-35.0); MEAN CORPUSCULAR HGB CONC 33.2 g/dl (31.0-37.0); MEAN PLATELET VOLUME 8.7 fl (7.0-11.0); RBC 3.99 10^6/uL (3.5-6.1); RED CELL DISTRIBUTION WIDTH 13.2 % (11.5-14.5); WHITE BLOOD COUNT 5.6 10^3/ul (4.5-11.0)
[2017-04-26 07:58] LABS: ALBUMIN 2.9 g/dL (3.0-4.8); ALT/SGPT 33 U/L (7-56); AST/SGOT 30 U/L (15-59); BLOOD UREA NITROGEN 19 mg/dL (7-21); CALCIUM 8.6 mg/dL (8.4-10.5); GFR AFRICAN-AMERICAN > 60; GFR NON-AFRICAN AMERICAN > 60
[2017-04-26 08:02] LABS: ALB/GLOB RATIO 1.1 (1.1-1.8)
[2017-04-26] MEDS: Potassium Chloride 20 mEq ER Tab PO SCH (08:20)
[2017-04-26] MEDS: Metoprolol Succinate 25 mg XL Tab PO SCH (08:21)
[2017-04-26] MEDS: Naproxen 550 mg Tab PO PRN (08:25)
--- NOTE | 2017-04-27 05:25 | DS ---
HISTORY OF PRESENT ILLNESS: I saw Mr. Rodriguez in the TCU, getting ready to be discharged to a subacute rehab down in [facility] where his family is. He needs to we are getting him ready. He is comfortable, slept fairly well. He is doing better. He needs physical therapy. MEDICATIONS: He is on Flomax, Toprol, meclizine, finasteride, Lipitor, aspirin, TobraDex, potassium, Anaprox. PHYSICAL EXAMINATION: VITAL SIGNS: 98.9 temperature, 67 pulse, 130/69 blood pressure, 20 respiratory rate with 100% O2 saturation on room air. HEENT: Head is atraumatic, normocephalic. HEART: Regular rate. LUNGS: Decreased breath sounds, but clear. ABDOMEN: Soft, nontender. EXTREMITIES: No edema. GENERAL: He is thin, tall and frail. LABORATORY DATA: He has a 5.6 white count, 11.7 hemoglobin, 35.2 hematocrit with 262 platelets. 137 sodium, potassium 4.2, BUN 19, creatinine 0.8, GFR is greater than 60, sugar is 82, calcium is 8.6. Total bilirubin is 0.7, AST 30, ALT is 33, alkaline phosphatase 24, total protein 5.6, albumin 2.9. ASSESSMENT AND PLAN: He is fairly well here. He needs one more therapy. He will be sent down to a facility down in [facility] by family and he is discharged. Ronak Garza DO MTDD
== END 2017-04-26 11:28 | disposition home or self-care (01) | DRG 558 ==
LOC: TRCU 14:53
PROVIDERS: ADMIT Family Medicine; ATTEND Family Medicine
PROC: F07Z9ZZ Gait Training/Functional Ambulation Treatment (ICD-10-PCS; principal; 2017-04-19)
PROC: F07M6ZZ Therapeutic Exercise Treatment of Musculoskeletal System - Whole Body (ICD-10-PCS; 2017-04-19)
PROC: F08Z2ZZ Grooming/Personal Hygiene Treatment (ICD-10-PCS; 2017-04-19)
PROC: F08Z1ZZ Dressing Techniques Treatment (ICD-10-PCS; 2017-04-19)
DX: M62.82 Rhabdomyolysis (principal); I95.9 Hypotension, unspecified; W19.XXXA Unspecified fall, initial encounter; E86.0 Dehydration; H10.9 Unspecified conjunctivitis; I10 Essential (primary) hypertension; K59.00 Constipation, unspecified; N40.0 Benign prostatic hyperplasia without lower urinary tract symptoms; Y92.009 Unspecified place in unspecified non-institutional (private) residence as the place of occurrence of the external cause; Z82.49 Family history of ischemic heart disease and other diseases of the circulatory system; Z85.828 Personal history of other malignant neoplasm of skin; Z92.3 Personal history of irradiation; Z85.819 Personal history of malignant neoplasm of unspecified site of lip, oral cavity, and pharynx; Z90.79 Acquired absence of other genital organ(s); R26.81 Unsteadiness on feet; Z90.49 Acquired absence of other specified parts of digestive tract; L85.3 Xerosis cutis; Z88.0 Allergy status to penicillin; R40.2412 Glasgow coma scale score 13-15, at arrival to emergency department; R55 Syncope and collapse; M54.5 Low back pain